=== PATIENT | female | born 1960 | race Caucasian/White ===

== ENCOUNTER 2023-09-25 10:54 | Outpatient (RCR) | payer OTHER, BC, SELFPAY | END 2023-09-25 23:59 | disposition home or self-care (01) | LOC: ROT 10:54 | PROVIDERS: ATTENDING PHYSICIAN Student in an Organized Health Care Education/Training Program; FAMILY PHYSICIAN Family Medicine | DX: S62.112D Displaced fracture of triquetrum [cuneiform] bone, left wrist, subsequent encounter for fracture with routine healing (principal) | CPT/HCPCS: 97010; 97110 ==

== ENCOUNTER → 2024-01-28 06:24 | Outpatient (REF) | payer OTHER, BC, SELFPAY ==
[2024-01-28 07:21] LABS: % Basophils 0.7 % (0-2); % Eosinophils 3.9 % (0-6); % Immature Granulocytes 0.3 % (0-0.5); % Lymphocytes 29.8 % (20.5-51.1); % Monocytes 5.2 % (1.7-9.3); % Neutrophils 60.1 % (42.2-75.2); Absolute Eosinophils 0.2 10^3/uL (0-0.7); Absolute Lymphocytes 1.8 10^3/uL (1.2-3.4); Absolute Monocytes 0.3 10^3/uL (0.1-0.6); Absolute Neutrophils 3.6 10^3/uL (1.4-6.5); Hematocrit 43.4 % (37.0-47.0); Hemoglobin 14.7 g/dL (12.0-16.0); Mean Corp Hgb Conc. 33.9 g/dL (33.0-37.0); Mean Corpuscular Hgb 30.4 pg (27.0-31.0); Mean Corpuscular Volume 89.9 fL (81.0-99.0); Mean Platelet Volume 9.4 fL (7.4-10.4); Nucleated Red Blood Cells % 0 %; Platelet Count 214 10^3/uL (130-400); Red Blood Cell Count 4.83 10^6/uL (4.20-5.40); Red Cell Dist. Width 13.2 % (11.5-14.5); White Blood Cell Count 5.9 10^3/uL (4.8-10.8)
[2024-01-28 07:48] LABS: ALT (SGPT) 36 U/L (0-35); AST (SGOT) 32 U/L (14-36); Albumin 4.2 g/dl (3.5-5.0); Alkaline Phosphatase 74 U/L (38-126); Blood Urea Nitrogen 22 mg/dl (7-17); Calcium 9.8 mg/dl (8.4-10.2); Carbon Dioxide 27 mmol/L (22-30); Chloride 106 mmol/L (98-107); Glucose 84 mg/dl (70-99); HDL Cholesterol 69 mg/dl; LDL Cholesterol, Calculated 62 mg/dl; Potassium 4.5 mmol/L (3.5-5.1); Sodium 141 mmol/L (135-145); Total Bilirubin 1.2 mg/dl (0.2-1.3); Total Cholesterol 144 mg/dl (50-199); Total Protein 6.9 g/dl (6.3-8.2); Triglyceride 66 mg/dl (10-149); Very Low Density Lipoprotein 13 mg/dl (0-30); eGFR > 60.00
[2024-01-28 08:50] LABS: Glycohemoglobin (HgbA1c) 5.6 % (4.0-5.6)
[2024-01-28 09:14] LABS: TSH 3.24 uIU/ml (0.47-4.68)
== END ==
LOC: REG 06:24
PROVIDERS: ATTENDING PHYSICIAN Family Medicine
DX: Z00.00 Encounter for general adult medical examination without abnormal findings (principal)
CPT/HCPCS: 36415; 80053; 80061; 83036; 84443; 85025

== ENCOUNTER → 2024-10-28 13:36 | Outpatient (REF) | payer OTHER, BC, SELFPAY | LOC: WDC 13:36 | PROVIDERS: ATTENDING PHYSICIAN Family Medicine | DX: Z12.31 Encounter for screening mammogram for malignant neoplasm of breast (principal) | CPT/HCPCS: 77063; 77067 ==

== ENCOUNTER 2024-11-09 15:10 | Emergency (ER) | payer BC, SELFPAY ==
[2024-11-09 15:14] VITALS: BP 189/117
[2024-11-09 15:47] LABS: % Basophils 0.5 % (0-2); % Eosinophils 3.6 % (0-6); % Immature Granulocytes 0.9 % (0-0.5); % Lymphocytes 38.1 % (20.5-51.1); % Monocytes 4.6 % (1.7-9.3); % Neutrophils 52.3 % (42.2-75.2); Absolute Eosinophils 0.3 10^3/uL (0-0.7); Absolute Immature Granulocytes 0.1 10^3/uL (0-0.05); Absolute Lymphocytes 2.8 10^3/uL (1.2-3.4); Absolute Monocytes 0.3 10^3/uL (0.1-0.6); Absolute Neutrophils 3.9 10^3/uL (1.4-6.5); Hematocrit 43.6 % (37.0-47.0); Hemoglobin 14.7 g/dL (12.0-16.0); Mean Corp Hgb Conc. 33.7 g/dL (33.0-37.0); Mean Corpuscular Hgb 29.9 pg (27.0-31.0); Mean Corpuscular Volume 88.6 fL (81.0-99.0); Mean Platelet Volume 9.2 fL (7.4-10.4); Nucleated Red Blood Cells % 0 %; Platelet Count 222 10^3/uL (130-400); Red Blood Cell Count 4.92 10^6/uL (4.20-5.40); Red Cell Dist. Width 12.9 % (11.5-14.5); White Blood Cell Count 7.4 10^3/uL (4.8-10.8)
[2024-11-09 16:00] LABS: ALT (SGPT) 27 U/L (0-35); AST (SGOT) 25 U/L (14-36); Albumin 4.5 g/dl (3.5-5.0); Alkaline Phosphatase 97 U/L (38-126); Blood Urea Nitrogen 26 mg/dl (7-17); Calcium 9.6 mg/dl (8.4-10.2); Carbon Dioxide 30 mmol/L (22-30); Chloride 101 mmol/L (98-107); Glucose 92 mg/dl (70-99); Potassium 4.2 mmol/L (3.5-5.1); Sodium 138 mmol/L (135-145); Total Bilirubin 0.8 mg/dl (0.2-1.3); Total Protein 7.1 g/dl (6.3-8.2); eGFR > 60.00
[2024-11-09 17:01] VITALS: BP 181/92; BMI 38.8
[2024-11-09] MEDS: COZAAR 100 MG PO (17:37)
[2024-11-09] MEDS: TYLENOL 1000 MG PO (17:37)
--- NOTE | 2024-11-09 18:19 | ED.GENMED ---
History of Present Illness
General
Chief Complaint: Blood Pressure Problem
Source: patient
Exam Limitations: none
Time Seen by Provider: 11/09/24 16:45
Nursing documentation reviewed up to this point in time: agreed with
History of Present Illness
History of Present Illness:
Patient to ED wt complain of elevated BP and headache. States she has had a headache all week. Today she checked her BP and reports it was elevated at 180's/117. Takes losartan 100mg QPM and reports compliance with med. She states she was on
HCTZ 25mg daily but she lost weight and blood pressure came down so med was stopped This was approx 1.5yrs ago. SInce then the weight has returned. She was seen by PCP 3 mos ago and BP as 'ok'. Brought to ED by spouse today for evaluation
Past History
Past History
ED Past Medical History: HTN
ED Past Surgical History: Cholecystectomy and Other (Carpal tunnel surgery in 2001, tubal ligation in 1993)
Social History
Tobacco: Non-smoker
Alcohol: Occasional
Personal:
Living: with family
Employment: Employed
Review of Systems
Review of Systems
Allergies reviewed?: Yes
All Other Systems: ROS reviewed and negative except as documented in HPI and ROS
Constitutional: Reports no symptoms
EENT: Reports no symptoms
Respiratory: Reports no symptoms
Cardiac: Reports other (Elevated BP readings)
ABD/GI: Reports no symptoms
: Reports no symptoms
Musculoskeletal: Reports no symptoms
Skin: Reports no symptoms
Neurological: Reports headache
Psychiatric: Reports no symptoms
Phy Exam
General Physical Exam
General Presentation: well appearing and no apparent distress
General age: appears stated age
General Skin: warm and dry
General Habitus: normal
General Mental: alert
General Hydration: appears well hydrated
Cardiovascular Exam
Cardiovascular Exam: regular rate/rhythm and no edema
Pulmonary Exam
Pulmonary Exam: lungs clear and no respiratory distress
Musculoskeletal Exam
Musculoskeletal Exam: full ROM and no edema
Skin Exam
Skin Exam: normal color, warm/dry and no rash
Psychiatric Exam
Psychiatric Exam: normal mood/affect
Course
Orders/Labs/Results
Orders:
Orders
11/09/24 15:37
Complete Blood Count/With Diff Urgent
Comprehensive Metabolic Panel Urgent
11/09/24 17:19
Acetaminophen [Tylenol] 1,000 mg .ROUTE .STK-MED ONE
11/09/24 17:21
Losartan [Cozaar] 100 mg PO NOW STA
11/09/24 17:24
Acetaminophen [Tylenol] 1,000 mg PO NOW STA
Abnormal Lab Results
11/09/24
15:37
Abs Immat Gran (auto) 0.1 H 10^3/uL
(0-0.05)
Immature Gran % 0.9 H %
(0-0.5)
BUN 26 H mg/dl
(7-17)
Creatinine 0.5 L mg/dL
(0.6-1.0)
11/09/24 15:37
11/09/24 15:37
Vital Signs
Initial and Last Documented VS:
Initial Vital Signs
Temp Pulse Resp BP Pulse Ox
98.5 F 83 18 189/117 97
11/09/24 15:14 11/09/24 15:14 11/09/24 15:14 11/09/24 15:14 11/09/24 15:14
Last Documented Vital Signs
Temp Pulse Resp BP Pulse Ox
98.2 F 67 15 155/83 96
11/09/24 17:01 11/09/24 17:37 11/09/24 17:01 11/09/24 18:21 11/09/24 17:01
*Pulse Oximetry
Patient hypoxic: no
*EKG
Interpretation: normal
Rate: normal
Rhythm: sinus
*Critical Care Note
Total Time (30-74mins, 75-104mins- exclusive of procedures): Not Applicable
Update Note
Update Note:
Increased losartan to 100mg tonight, given in ED. BP now 150's/70. WIll give rx to restart HCTZ, however she will contact PCP in AM to discuss restarting HCTZ vs BID dosing of losartan. SHe was given instructions on s/s to return to ED and she is
agreeable to plan.
ED Attending Note
-
Portions of this chart may have been created with voice recognition software.� Occasional wrong word or��sound alike� substitutions may have occurred due to the inherent limitations of voice recognition software.
Discharge Plan
Departure
Patient Disposition: Home (Routine Discharge)
Date of Disposition: 11/09/24
Time of Disposition: 18:25
Patient with high blood pressure during this ER visit?: Yes
Condition: Good
Covid-19: Not Applicable
Discharge Problem:
Hypertension
Instructions: High Blood Pressure (DC)
Prescriptions:
New
hydrochlorothiazide 25 mg tablet
25 mg PO DAILY Qty: 30 0RF
No Action
hydrochlorothiazide 25 MG tablet
25 mg PO DAILY
calcium carbonate-vitamin D3 [Calcium 500 With D] 1 EACH tablet
1 ea PO DAILY
multivitamin with folic acid [Tab-A-Zoe] 1 TABLET tablet
1 tab PO DAILY
omega-3 fatty acids-fish oil 1 EACH capsule
1 ea PO BID
losartan 50 mg Tablet
50 mg PO DAILY
Referrals:
Kati Mejía MD [Family Provider] - Tomorrow
Activity Restrictions/Additional Instructions:
Return to the emergency department immediately for any changes in/worsening of your symptoms.
Interventions
Interventions:
*Risk Screen - Suicide Last Done: 11/09/24 15:18
*Neglect/Abuse Screening Last Done: 11/09/24 15:18
*ED COVID-19 Vaccine History Last Done: 11/09/24 15:17
*Nursing Disposition Last Done: 11/09/24 18:43
ED- Cardiac Assessment Last Done: 11/09/24 17:01
ED- Neurological Assessment Last Done: 11/09/24 17:01
ED- Pulmonary Assessment Last Done: 11/09/24 17:01
Discharge Date and Time
Discharge Date/Time: 11/09/24 18:44
Print Language: [id number]
[2024-11-09 18:21] VITALS: BP 155/83
== END 2024-11-09 18:44 | disposition home or self-care (01) ==
LOC: EMR 15:10
PROVIDERS: EMERGENCY PHYSICIAN Student in an Organized Health Care Education/Training Program; FAMILY PHYSICIAN Family Medicine
DX: I10 Essential (primary) hypertension (principal); R51.9 Headache, unspecified; Z90.49 Acquired absence of other specified parts of digestive tract
CPT/HCPCS: 99283; 80053; 85025

== ENCOUNTER → 2024-12-01 06:30 | Outpatient (REF) | payer BC, SELFPAY ==
[2024-12-01 08:24] LABS: Blood Urea Nitrogen 23 mg/dl (7-17); Calcium 9.3 mg/dl (8.4-10.2); Carbon Dioxide 33 mmol/L (22-30); Chloride 101 mmol/L (98-107); Glucose 92 mg/dl (70-99); Potassium 4.3 mmol/L (3.5-5.1); Sodium 140 mmol/L (135-145); eGFR > 60.00
== END ==
LOC: REG 06:30
PROVIDERS: ATTENDING PHYSICIAN Family Medicine
DX: I10 Essential (primary) hypertension (principal)
CPT/HCPCS: 36415; 80048

== ENCOUNTER 2024-12-29 06:19 | Day surgery (SDC) | payer BC, SELFPAY | END 2024-12-29 10:29 | disposition home or self-care (01) | LOC: GI 06:19 | PROVIDERS: ATTENDING PHYSICIAN Internal Medicine Gastroenterology | DX: Z12.11 Encounter for screening for malignant neoplasm of colon (principal); K57.30 Diverticulosis of large intestine without perforation or abscess without bleeding; K64.8 Other hemorrhoids; D12.3 Benign neoplasm of transverse colon; D12.5 Benign neoplasm of sigmoid colon; D12.8 Benign neoplasm of rectum; Z80.0 Family history of malignant neoplasm of digestive organs | CPT/HCPCS: 45385; 88305 ==

== ENCOUNTER → 2025-02-02 06:30 | Outpatient (REF) | payer BC, SELFPAY ==
[2025-02-02 07:24] LABS: % Basophils 0.7 % (0-2); % Eosinophils 6.4 % (0-6); % Immature Granulocytes 0.3 % (0-0.5); % Lymphocytes 30.1 % (20.5-51.1); % Monocytes 6.2 % (1.7-9.3); % Neutrophils 56.3 % (42.2-75.2); Absolute Eosinophils 0.4 10^3/uL (0-0.7); Absolute Lymphocytes 1.8 10^3/uL (1.2-3.4); Absolute Monocytes 0.4 10^3/uL (0.1-0.6); Absolute Neutrophils 3.3 10^3/uL (1.4-6.5); Hematocrit 42.1 % (37.0-47.0); Hemoglobin 14.4 g/dL (12.0-16.0); Mean Corp Hgb Conc. 34.2 g/dL (33.0-37.0); Mean Corpuscular Hgb 30.6 pg (27.0-31.0); Mean Corpuscular Volume 89.6 fL (81.0-99.0); Mean Platelet Volume 9.7 fL (7.4-10.4); Nucleated Red Blood Cells % 0 %; Platelet Count 219 10^3/uL (130-400); Red Cell Dist. Width 13.9 % (11.5-14.5); White Blood Cell Count 5.9 10^3/uL (4.8-10.8)
[2025-02-02 08:03] LABS: ALT (SGPT) 32 U/L (0-35); AST (SGOT) 27 U/L (14-36); Albumin 4.4 g/dl (3.5-5.0); Alkaline Phosphatase 70 U/L (38-126); Blood Urea Nitrogen 20 mg/dl (7-17); Calcium 9.4 mg/dl (8.4-10.2); Carbon Dioxide 29 mmol/L (22-30); Chloride 101 mmol/L (98-107); Glucose 105 mg/dl (70-99); HDL Cholesterol 64 mg/dl; LDL Cholesterol, Calculated 89 mg/dl; Potassium 4.6 mmol/L (3.5-5.1); Sodium 142 mmol/L (135-145); Total Bilirubin 0.9 mg/dl (0.2-1.3); Total Cholesterol 172 mg/dl (50-199); Triglyceride 95 mg/dl (10-149); Very Low Density Lipoprotein 19 mg/dl (0-30); eGFR > 60.00
[2025-02-02 08:22] LABS: Glycohemoglobin (HgbA1c) 5.6 % (4.0-5.6)
[2025-02-02 08:30] LABS: TSH 3.66 uIU/ml (0.47-4.68)
== END ==
LOC: REG 06:30
PROVIDERS: ATTENDING PHYSICIAN Family Medicine
DX: I10 Essential (primary) hypertension (principal)
CPT/HCPCS: 36415; 80053; 80061; 83036; 84443; 85025

== ENCOUNTER 2025-06-15 06:26 | Day surgery (SDC) | payer BC, SELFPAY | END 2025-06-15 11:18 | disposition home or self-care (01) | LOC: GI 06:26 | PROVIDERS: ATTENDING PHYSICIAN Internal Medicine Gastroenterology; FAMILY PHYSICIAN Family Medicine | DX: Z12.11 Encounter for screening for malignant neoplasm of colon (principal); K62.1 Rectal polyp; Z86.0101 Personal history of adenomatous and serrated colon polyps; Z98.890 Other specified postprocedural states | CPT/HCPCS: 45331; 88305 ==